=== PATIENT | female | born 1960 | race Caucasian/White ===

== ENCOUNTER → 2018-04-08 | Outpatient (CLI) | payer OTHER ==
--- NOTE | 2018-04-08 11:28 | CONS ---
CONSULTATION DATE OF SERVICE: 04/08/2018 A 57-year-old lady who has been evaluated in the [facility] for possible obstructive sleep apnea-hypopnea syndrome. HISTORY OF PRESENT ILLNESS/SLEEP-WAKE EVALUATION: Patient usual sleep schedule on weekdays from 11 - 12 midnight until 8 - 9 a.m. On weekends from midnight - 1 am until 8 - 9 a.m. Usually no problems with falling asleep, although he has a TV set in bedroom. She sleeps on the side and back position with her . According to him, she has very loud snoring. She wakes up from sleep four times with nocturia and dry mouth. In the morning, she wakes up tired, has difficulties to pay attention, falling asleep during the day, has problems with memory, concentration, irritability, depression. [place] Sleepiness Scale is 3. She takes naps once a day around 1 or 2 pm. PAST MEDICAL HISTORY: Positive for hypertension, diabetes mellitus, hypothyroidism, acid reflux, anxiety, depression, asthma, seasonal allergies, sinus problems. PAST SURGICAL HISTORY: Total hysterectomy. MEDICATIONS: Vitamins, Flonase, metformin, citalopram, L-thyroxine, trazodone, omeprazole, bupropion, losartan with hydrochlorothiazide, ProAir on p.r.n. basis. SOCIAL HISTORY: Positive for smoking in the past for about 22 pack years, quit about 26 years ago. Alcohol consumption very rarely. REVIEW OF SYSTEMS: Multiple awakenings from sleep with nocturia, snoring, tiredness and sleepiness during the day, swelling of the legs is staying for a long time. FAMILY HISTORY: Hypertension, heart problems, stroke, arthritis, sinus problems, tuberculosis, sleep apnea, lung problems, cancer, diabetes, acid reflux, thyroid problems. PHYSICAL EXAM: lady without distress. BP 163/74, HR 82, RR 16, height 5 and 4, weight 320, BMI 54.9, temperature 99.8, oxygen saturation on room air 96%. OROPHARYNX: Extremely low position of soft palate, small nasal passages, wide neck 16- 1/2 inches in circumference. ABDOMEN: Obese. Neck Supple, no JVD. Thyroid is not palpable. LUNGS Clear to percussion and to auscultation. Good air exchange. No wheezing or rhonchi. HEART S1, S2 regular. No murmurs, gallops, or rubs. EXTREMITIES No clubbing or cyanosis. 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 Cranial nerves 2 to 7 intact. There is no fasciculation or atrophy. noted. No focal deficits observed. IMPRESSION: 1. Snoring, multiple awakenings from sleep with nocturia and dry mouth, low position of soft palate, wide neck. Patient feels sleepy and tired during the day, takes naps. Obstructive sleep apnea-hypopnea syndrome. 2. Obesity, body mass index 54.9. 3. Hypertension. 4. Diabetes mellitus. 5. Hypothyroidism. 6. Acid reflux. 7. History of anxiety. 8. History of depression. N. 9. Asthma. 10.Seasonal allergy. 11.Status post total hysterectomy. 12.Sinus problems. PLAN: 1. Polysomnography for evaluation of patient's breathing during sleep. 2. CPAP/BiPAP titration if sleep study confirms obstructive sleep apnea-hypopnea syndrome. 3. Preferable position during sleep on the side. 4. No driving if patient feels any sleepiness. 5. I will see patient for follow up visit to explain results of testing and following plan. Thank you very much for referring this patient for consultation. Sincerely, Norman Guardado MD, PhD, FAASM Diplomat of [employer] [employer] [employer] Production Packager of [facility] [place] MMODL / CHRISTINEN: [id number] /
== END | disposition home or self-care (01) ==
LOC: SLEEP 10:06
PROVIDERS: ATTEND Internal Medicine
DX: G47.33 Obstructive sleep apnea (adult) (pediatric) (principal); R35.1 Nocturia; M27.8 Other specified diseases of jaws; E66.9 Obesity, unspecified; I10 Essential (primary) hypertension; E11.9 Type 2 diabetes mellitus without complications; E03.9 Hypothyroidism, unspecified; K21.9 Gastro-esophageal reflux disease without esophagitis; F41.9 Anxiety disorder, unspecified; F32.9 Major depressive disorder, single episode, unspecified; J45.909 Unspecified asthma, uncomplicated; Z90.710 Acquired absence of both cervix and uterus; J34.9 Unspecified disorder of nose and nasal sinuses; Z79.84 Long term (current) use of oral hypoglycemic drugs; Z79.51 Long term (current) use of inhaled steroids; Z79.899 Other long term (current) drug therapy; Z68.43 Body mass index [BMI] 50.0-59.9, adult; Z87.891 Personal history of nicotine dependence
CPT/HCPCS: 99211

== ENCOUNTER → 2018-08-18 | Outpatient (CLI) | payer OTHER ==
--- NOTE | 2018-08-18 17:04 | PN ---
PROGRESS NOTE DATE OF SERVICE: 08/18/2018 This patient is a 58-year-old lady who has been followed in [facility] for treatment of obstructive sleep apnea-hypopnea syndrome. Recently patient had a polysomnogram which showed obstructive sleep apnea with apnea- hypopnea index 25.6 and in REM sleep 70.7 with oxygen desaturation to 78.2%. The patient was started on treatment with Auto PAP and today is her first visit with her CPAP unit. The patient is trying to use her Auto PAP, but she has difficulties using it because she cannot breathe through her nose and she opens her mouth, although she has a full- face mask. I checked her CPAP unit. It is on automatic regimen 5-20 cm of water. Most of the time the pressure is 17.3 cm of water. The patient used equipment / nights and 12/07 nights for more than 4 hours. Leak is significant at 43 L/minute. Apnea-hypopnea index reading is 9.2. [place] Sleepiness Scale today is 10. MEDICATIONS: 1. Flonase. 2. Metformin. 3. Citalopram. 4. L-thyroxine. 5. Trazodone. 6. Omeprazole. 7. Bupropion. 8. Losartan with hydrochlorothiazide. 9. ProAir. PHYSICAL EXAMINATION: GENERAL: A pleasant patient in no distress. VITAL SIGNS: BP 159/75, HR 74, RR 16, weight 327, temperature 98.5, oxygen saturation at room air 96%. HEENT: PERRLA, EOMI. Evaluation of oropharynx showed tongue protrudes midline. Mallampati IV. NECK: Supple. No JVD. Thyroid is not palpable. LUNGS: Clear to percussion and to auscultation. Good air exchange. No wheezing or rhonchi. HEART: S1, S2 regular. No murmurs, gallops or rubs. ABDOMEN: Obese. EXTREMITIES: No clubbing or cyanosis. GERIATRIC NURSE ASSISTANT: Awake, alert, and oriented X3. Cranial nerves 2 to 7 intact. There is no fasciculation or atrophy. noted. No focal deficits observed. IMPRESSION: 1. Moderate obstructive sleep apnea-hypopnea syndrome, severe in REM sleep. Patient has difficulties tolerating CPAP therapy in automatic regimen. 2. Obesity. 3. Hypertension. 4. Hypothyroidism. 5. Acid reflux. 6. Anxiety. 7. Asthma. PLAN: 1. CPAP, if necessary BiPAP, titration for correction of patient's respiration during sleep and to find a proper mask for the patient. 2. Losing weight. 3. Sleep hygiene with regular time in bed for at least 8 hours. 4. No driving if feeling any sleepiness. Thank you very much for allowing me to participate in the management of your patient. Sincerely, Norman Guardado MD, PhD, FAASM Diplomat of [place] [employer] [employer] Carbonation Tester of [facility] [place] MMODL / IJN: [id number] /
== END ==
LOC: SLEEP 15:27
PROVIDERS: ATTEND Internal Medicine
DX: G47.33 Obstructive sleep apnea (adult) (pediatric) (principal); E66.9 Obesity, unspecified; I10 Essential (primary) hypertension; E03.9 Hypothyroidism, unspecified; K21.9 Gastro-esophageal reflux disease without esophagitis; F41.9 Anxiety disorder, unspecified; J45.909 Unspecified asthma, uncomplicated; Z99.89 Dependence on other enabling machines and devices; Z79.899 Other long term (current) drug therapy; Z79.84 Long term (current) use of oral hypoglycemic drugs

== ENCOUNTER → 2023-07-30 | Outpatient (CLI) | payer BC ==
[2023-07-30 13:29] LABS: African American GFR (CKD) 66 (>60 ml/min/1.73 sqM); Blood Urea Nitrogen 16 mg/dL (7-17); Non-African American GFR(CKD) 58 (>60 ml/min/1.73 sqM)
--- NOTE | 2023-07-30 15:57 | CT ---
EXAMINATION TYPE: CT facial bones w con CT DLP: 588 mGycm, Automated exposure control for dose reduction was used. DATE OF EXAM: 07/30/2023 2:00 PM COMPARISON: None. 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 Coronal, axial and sagittal reformatted images were also provided in soft tissue and bone windows and submitted for interpretation. Additional 3-D reformatted images were obtained on a [employer] workstation. . Contrast used:100 mL of Isovue 300 with IV Contrast, (none if empty) Oral contrast used: (none if empty) FINDINGS: No evidence of organizing fluid collection or fluid within the sinuses to suggest CSF leak. There is no evidence of fracture, subluxation, dislocation, or significant soft tissue swelling. The orbital contents are unremarkable.The temporal-mandibular joints appear symmetric. The visualized por tion of the paranasal sinuses appear clear. Benign hyperostosis frontalis. Mild intracranial atheros clerosis. Intracranial vasculature appears patent without evidence for significant stenosis or aneury smal dilation. IMPRESSION: No evidence for cerebral spinal fluid leak. No acute process.
== END | disposition home or self-care (01) ==
LOC: RADCTMAIN 12:54
PROVIDERS: ATTEND Family Medicine
DX: G96.01 Cranial cerebrospinal fluid leak, spontaneous (principal)
CPT/HCPCS: 82565; 84520; 70487; 36415; Q9967